=== PATIENT | male | born 2000 | race Caucasian/White ===

== ENCOUNTER 2022-06-13 11:49 | Emergency (ER) | payer OTHER, SELFPAY ==
[2022-06-13 12:20] VITALS: BP 150/79; PULSE 102; RESP 16; TEMP 37.1; O2SAT 99
--- NOTE | 2022-06-13 12:47 | ED.SKABFB ---
HPI - Skin/Abscess/Foreign Bdy General Chief complaint: Skin/Abscess/Foreign Body Stated complaint: sunburn Time Seen by Provider: 06/13/22 12:47 Source: patient and RN notes reviewed Mode of arrival: ambulatory Limitations: no limitations History of Present Illness HPI narrative: 21-year-old male presents to the [facility] with sunburn that occurred 1 week ago. Has had first and second-degree briseno on his chest. Most of it is getting better and peeling. No longer has blisters. Mom reports that she has tried multiple [id number] products with minimal relief. Patient is up-to-date on all immunizations Related Data Allergies Allergy/AdvReac Type Severity Reaction Status Date / Time No Known Allergies Allergy Verified 06/13/22 12:28 Review of Systems Review of Systems: All systems reviewed & are unremarkable except as noted in HPI and below Constitutional: Constitutional: Reports no additional constitutional complaints, Denies chills and Denies fever(s) Eyes: Eyes: Reports no additional eye complaints ENT: Reports system reviewed and no additional complaints, except as documented Cardiovascular: Cardiovascular: Reports no additional cardiovascular complaints Respiratory: Respiratory: Reports no additional respiratory complaints Gastrointestinal: Gastrointestinal: Reports no additional gastrointestinal complaints Musculoskeletal: Musculoskeletal: Reports no additional musculoskeletal complaints Integumentary/Breasts: Skin/Breast: Reports as per HPI and Reports erythema Neurologic: Reports system reviewed and no additional complaints, except as documented Psychiatric: Psychiatric: Reports no additional psychiatric complaints Allergic/Immunologic: Allergic/Immunologic: Reports no additional allergic/immunologic complaints PMFSH Past Medical History Medical History No significant medical problems Surgical History Surgical History (Updated 06/13/22 @ 20:46 by Bing Archuleta APRN) No pertinent past surgical history Comments At the time of my signature, I reviewed and agree with the nursing past medical, surgical, social, and family history. There is no relevant family history pertinent to the patient complaint. Exam Const: General: healthy appearing, no acute distress and alert Nutritional Appearance: well nourished and obese Orientation/consciousness: patient oriented x3 Limitations: no limitations HENMT: Head: normal to inspection Ears: external ears normal General nose exam: Normal external nose present and Normal nares present Mouth: Yes Normal oral and palatal mucosa present Throat: posterior oropharynx normal Eyes: General: appearance normal, both eyes and all related structures Pupils: Equal, round and reactive pupils present Neck: Neck: normal visual inspection, no lymphadenopathy and no meningeal signs Chest: Chest palpation & inspection: normal inspection of the chest Resp: Effort & Inspection: normal respiratory effort and no use of accessory muscles Auscultation: clear to auscultation bilaterally, no crackles, no rales, no rhonchi and no wheezes Cardio: Rate: regular rate Rhythm: regular rhythm Back/Spine/Pelvis: Cervical Spine: normal cervical lordosis Thoracic/Lumbar Spine: thoracic and lumbar spine normal to inspection Skin: General skin exam: normal color Rashes: no rashes Wounds: no wounds Other: Back, red, warm, indicative of sunburn with significant peeling. Top of shoulders red, hot to touch, indurated areas without fluctuance concern for cellulitic changes. Anterior chest red, areas of healing, hot to touch. Mom reports multiple blisters to the pectoral areas that are in different degrees of healing. Neuro: General: patient oriented x3, moves all extremities, no meningeal signs and no focal motor deficits Cranial nerves: Yes Equal, round and reactive pupils present Speech: normal speech Gait exam (Neuro): Nor
== END 2022-06-13 13:15 | disposition home or self-care (01) ==
PROVIDERS: Emergency Provider Nurse Practitioner
DX: L55.1 Sunburn of second degree (principal); L55.0 Sunburn of first degree
CPT/HCPCS: 99213; G0463

== ENCOUNTER 2023-12-28 09:43 | Emergency (ER) | payer OTHER, SELFPAY ==
[2023-12-28 10:20] VITALS: BP 151/83; PULSE 90; RESP 18; TEMP 36.7; O2SAT 100
--- NOTE | 2023-12-28 10:42 | ED.EAR ---
HPI - Ear Problem General Chief complaint: Ear Stated complaint: fb in left ear Source: patient, RN notes reviewed and old records reviewed Mode of arrival: ambulatory Limitations: no limitations History of Present Illness HPI Narrative: 23-year-old male presents to [facility] with complaints of its tip of Q-tip in left ear. Patient states lost tip off Q-tip will clean in his ears yesterday. Patient denies pain. MD Complaint: foreign body Location: left ear Related Data Allergies Allergy/AdvReac Type Severity Reaction Status Date / Time No Known Allergies Allergy Verified 12/28/23 10:09 Review of Systems Constitutional: Constitutional: Reports no additional constitutional complaints, Denies body ache(s), Denies chills, Denies fatigue, Denies fever(s) and Denies headache(s) Eyes: Eyes: Reports no additional eye complaints and Denies blurry vision ENT: Reports system reviewed and no additional complaints, except as documented, Denies vertigo, Denies dizziness, Denies ear discharge, Denies otalgia, Denies facial pain, Denies headache(s), Reports hearing loss, Denies nasal congestion, Denies nasal discharge, Denies sinus pain, Denies sinus pressure, Denies sore throat and Reports other ( Patient states has cotton part of Q-tip in left ear) Cardiovascular: Cardiovascular: Reports no additional cardiovascular complaints, Denies chest pain, Denies chest pain at rest, Denies rapid heart rate and Denies dyspnea Respiratory: Respiratory: Reports no additional respiratory complaints, Denies chest congestion, Denies cough, Denies pain on inspiration, Denies pain with cough and Denies dyspnea Gastrointestinal: Gastrointestinal: Denies abdominal pain, Denies diarrhea, Denies nausea and Denies vomiting Integumentary/Breasts: Skin/Breast: Denies rash Neurologic: Reports system reviewed and no additional complaints, except as documented, Denies vertigo, Denies dizziness and Denies headache(s) Endocrine: Endocrine: Denies fatigue PMFSH Past Medical History Medical History No significant medical problems Surgical History Surgical History No pertinent past surgical history Comments At the time of my signature, I reviewed and agree with the nursing past medical, surgical, social, and family history. There is no relevant family history pertinent to the patient complaint. Exam Const: General: cooperative, healthy appearing, no acute distress and well nourished Nutritional Appearance: well nourished Orientation/consciousness: patient oriented x3 Limitations: no limitations HENMT: Head: normal to inspection and normocephalic Ears: external ears normal, mastoids normal, Abnormal EAC present erythema on the left, EAC tenderness and otic discharge purulent on the left and unable to visualize TM on the left ( foreign body noted in the) Face/Nose/Sinus: normal facial exam Face and sinus: normal facial exam Mouth: Yes Normal oral and palatal mucosa present, Yes oropharynx normal and Yes moist mucous membranes Throat: tonsils normal, uvula midline and no uvular edema Eyes: General: appearance normal, both eyes and all related structures Sclera: sclerae normal Pupils: Equal, round and reactive pupils present Resp: Effort & Inspection: normal respiratory effort, able to speak in complete sentences, no audible wheezes, no cough, no respiratory distress and no retractions Skin: General skin exam: normal color and no rashes or lesions noted Neuro: General: patient oriented x3 Cranial nerves: Yes Equal, round and reactive pupils present Psych: Appearance: grossly normal Mental Status: mental status grossly normal Speech and movement: Normal speech and movement present Affect: normal affect Course Course Emergency Course: Patient is aware of diagnosis, understands and agrees to treatment plan.? Anticipatory guidance given.? Jay
== END 2023-12-28 10:55 | disposition home or self-care (01) ==
PROVIDERS: Emergency Provider Registered Nurse
DX: H60.312 Diffuse otitis externa, left ear (principal); T16.2XXA Foreign body in left ear, initial encounter; W44.8XXA Other foreign body entering into or through a natural orifice, initial encounter
CPT/HCPCS: 69200; 99213; G0463

== ENCOUNTER 2024-11-02 13:05 | Emergency (ER) | payer OTHER, SELFPAY ==
[2024-11-02 13:15] VITALS: BP 163/96; PULSE 100; RESP 18; TEMP 36.6; O2SAT 100
--- NOTE | 2024-11-02 13:23 | PC.NURSE ---
PROVIDER NOTIFIED OF BP AND HR.
--- NOTE | 2024-11-02 14:01 | ED.EAR ---
HPI - Ear Problem General Chief complaint: Ear Stated complaint: Ears Irritation Time Seen by Provider: 11/02/24 14:02 Source: patient, RN notes reviewed and old records reviewed Mode of arrival: ambulatory Limitations: no limitations History of Present Illness HPI Narrative: Patient presents with complaints of bilateral ear irritation. He reports that symptoms have been present for ?a couple of days?. He denies pain. He denies any injury or trauma. He has not been using anything for his symptoms. He voices no other concerns or complaints at this time. Related Data Allergies Allergy/AdvReac Type Severity Reaction Status Date / Time No Known Allergies Allergy Verified 11/02/24 13:11 Review of Systems Review of Systems: All systems reviewed & are unremarkable except as noted in HPI and below Constitutional: Constitutional: Reports no additional constitutional complaints ENT: Reports system reviewed and no additional complaints, except as documented and Reports otalgia Cardiovascular: Cardiovascular: Reports no additional cardiovascular complaints Respiratory: Respiratory: Reports no additional respiratory complaints Gastrointestinal: Gastrointestinal: Reports no additional gastrointestinal complaints [facility] Past Medical History Medical History No significant medical problems Surgical History Surgical History No pertinent past surgical history Comments At the time of my signature, I reviewed and agree with the nursing past medical, surgical, social, and family history. There is no relevant family history pertinent to the patient complaint. Exam Const: General: cooperative, no acute distress, alert and awake Orientation/consciousness: oriented to person, oriented to place and oriented to time HENMT: Head: normal to inspection Ears: external ears abnormal, TM's normal bilaterally, Abnormal EAC present erythema bilateral and edema bilateral and other (Red flaking rash noted to external ears bilaterally) Resp: Effort & Inspection: normal respiratory effort and able to speak in complete sentences Auscultation: clear to auscultation bilaterally, no crackles, no rales, no rhonchi and no wheezes Cardio: Palpation: normal PMI Rate: regular rate Rhythm: regular rhythm Heart sounds: S1 normal heart sound present and S2 normal heart sound present Neuro: General: oriented to person, oriented to place and oriented to time Cranial nerves: Yes CN's II-XII intact bilaterally Psych: Appearance: grossly normal Thought process: Normal thought process present Insight: Good insight present (Psych) Judgement: Good judgement present (Psych) Course Course Level of Care: Express Care Visit Vital Signs Vital signs: Vital Signs Temperature 97.9 F 11/02/24 13:15 Pulse Rate 100 11/02/24 13:15 Respiratory Rate 18 11/02/24 13:15 Blood Pressure 163/96 H 11/02/24 13:15 Pulse Oximetry 100 11/02/24 13:15 Oxygen Delivery Room Air 11/02/24 13:15 Temperature 97.9 F 11/02/24 13:15 Pulse Rate 100 11/02/24 13:15 Respiratory Rate 18 11/02/24 13:15 Blood Pressure 163/96 H 11/02/24 13:15 Pulse Oximetry 100 11/02/24 13:15 Oxygen Delivery Room Air 11/02/24 13:15 Reviewed Medical Decision Making MDM Narrative Medical decision making narrative: Physical exam consistent with otitis externa and dermatitis of the external ear. Otic drops and topical cream or prescribed. Patient noted to have elevated blood pressure. He is advised to discuss this with his primary care provider. Discharge instructions reviewed with patient, as well as provided in writing per nursing staff. The instructions also include specific and strict return/GO TO THE ER as well as f/u information. All questions have been answered, and the patient deny any further questions with discharge and discharge plan. Some parts of this dictation were generated by voice recognition software and may contain typographical and/or grammatical inaccuracies. Differential Diagnosis Differential Diagnosis: Otitis media, otitis externa, ear trauma Medical Records Medical records reviewed: Yes I reviewed the external patient's medical records. Vital Signs Vital Signs: Vital Signs Temperature 97.9 F 11/02/24 13:15 Pulse Rate 100 11/02/24 13:15 Respiratory Rate 18 11/02/24 13:15 Blood Pressure 163/96 H 11/02/24 13:15 Pulse Oximetry 100 11/02/24 13:15 Oxygen Delivery Room Air 11/02/24 13:15 Temperature 97.9 F 11/02/24 13:15 Pulse Rate 100 11/02/24 13:15 Respiratory Rate 18 11/02/24 13:15 Blood Pressure 163/96 H 11/02/24 13:15 Pulse Oximetry 100 11/02/24 13:15 Oxygen Delivery Room Air 11/02/24 13:15 reviewed Lab Data Lab results reviewed: Yes I reviewed the patient's lab results. Lab results narrative: reviewed Discharge Plan Discharge Clinical Impression: Elevated blood pressure reading Otitis externa Qualifiers: Otitis externa type: unspecified type Chronicity: unspecified Laterality: bilateral Qualified Code(s): H60.93 - Unspecified otitis externa, bilateral Patient Disposition: Home, Self-Care Condition: Stable Instructions: Antibiotic Form, Umang's Ear (ED) Additional Instructions: Use medications as prescribed. Please discuss her elevated blood pressure with primary care provider. Emergency department for any new or worse symptoms Patient Language: Lebanese Prescriptions: New ciprofloxacin-dexamethasone 0.3-0.1 % drops,suspension 4 drp EACH EAR Q12H 7 Days Qty: 7.5 0RF mometasone 0.1 % ointment 1 applic topical BID 14 Days Qty: 45 0RF No Action ofloxacin 0.3 % drops 10 drp LEFT EAR DAILY 7 Days Qty: 5 0RF Follow-up/Referrals: PHYSICIAN,SUBSTATION SUPERINTENDENT [Primary Care Provider] - Time of Disposition: 14:08
[2024-11-02 14:12] VITALS: BP 142/94; PULSE 100; RESP 18
== END 2024-11-02 14:14 | disposition home or self-care (01) ==
PROVIDERS: Emergency Provider Nurse Practitioner Family
DX: R03.0 Elevated blood-pressure reading, without diagnosis of hypertension (principal); H60.93 Unspecified otitis externa, bilateral
CPT/HCPCS: 99213; G0463